=== PATIENT | male | born 1940 | race Caucasian/White ===

== ENCOUNTER → 2023-07-17 | Outpatient (CLI) | payer MEDICARE ==
[2023-07-17 22:21] VITALS: PULSE 78; RESP 12
[2023-07-17 22:33] VITALS: PULSE 79; RESP 14
[2023-07-17 22:58] VITALS: PULSE 55; RESP 14
[2023-07-17 23:30] VITALS: PULSE 51; RESP 12
[2023-07-17 23:31] VITALS: PULSE 52; RESP 12
[2023-07-18] VITALS (11 sets, daily range): PULSE 45–70; RESP 10–44
== END | disposition home or self-care (01) ==
LOC: SLP 20:19
PROVIDERS: ATTEND Internal Medicine Cardiovascular Disease
DX: G47.33 Obstructive sleep apnea (adult) (pediatric) (principal)
CPT/HCPCS: 95810